=== PATIENT | female | born 1980 | race African-American/Black ===

== ENCOUNTER 2018-10-06 22:33 | Emergency (ER) | payer SELFPAY ==
[~2018-10-06] VITALS: Ht 167.6 cm; Wt 69.4 kg
[2018-10-06] MEDS ORDERED: ALBUTEROL SULF 0.083% NEB SOLN 3 ML NEB NEB STA (23:44)
[2018-10-07] MEDS ORDERED: ACETAMINOPHEN 325 MG TAB PO STA
[2018-10-07 04:15] VITALS: BP 126/88
== END 2018-10-07 00:59 | disposition home or self-care (01) ==
LOC: FSED 22:33
DX: R05 Cough (principal); J11.1 Influenza due to unidentified influenza virus with other respiratory manifestations
CPT/HCPCS: 87400; 99283